=== PATIENT | female | born 1985 | race Caucasian/White ===

== ENCOUNTER 2019-08-01 09:05 | Emergency (ER) | payer BC ==
[2019-08-01 09:50] VITALS: BP 131/95
--- NOTE | 2019-08-01 09:57 | UC ---
Skin Complaint HPI - HPI Summary HPI Summary: 33-year-old female who had a pimple on her left chin which popped and she has had increasing redness and tenderness over the past few days which is now involving below her chin. She denies any fever or chills. She denies any difficulty breathing and no difficulty swallowing. She denies any toothache or tooth involvement. - History of Current Complaint Chief Complaint: UCSkin Time Seen by Provider: 08/01/19 09:50 Stated Complaint: SKIN CONCERN Hx Obtained From: Patient Hx Last Menstrual Period: early 12/2015 ?: No Onset/Duration: Gradual Onset Skin Exposure Onset/Duration: Days Ago Timing: Constant Onset Severity: Mild Current Severity: Moderate Pain Intensity: 4 Location: Other - Chin Character: Swelling, Pain, Redness Aggravating Factor(s): Touch Alleviating Factor(s): Nothing Associated Signs & Symptoms: Positive: Drainage - Patient has had some clear drainage from where the pimple was., Tenderness Related History: Other: - Area started off as a pimple on her chin. - Allergy/Home Medications Allergies/Adverse Reactions: Allergies Allergy/AdvReac Type Severity Reaction Status Date / Time seasonal Allergy Congestion Uncoded 08/01/19 09:45 Home Medications: Home Medications inFLIXimab* [Remicade*] 100 mg .SEE ORDER SEE INSTRUCTIONS 08/01/19 [History Confirmed 08/01/19] PMH/Surg Hx/FS Hx/Imm Hx - Additional Past Medical History Additional PMH: Patient has a history of rheumatoid arthritis Previously Healthy: Yes - Surgical History Surgical History: Yes Surgery Procedure, Year, and Place: FATTY TUMOR REMOVED FROM BACK OF NECK, t/a - Family History Known Family History: Positive: Non-Contributory - Social History Alcohol Use: Occasionally Substance Use Type: None Smoking Status (MU): Never Smoked Tobacco Review of Systems All Other Systems Reviewed And Are Negative: Yes Skin: Positive: Other - Patient had a pimple on her chin which she squeezed and now has redness and swelling to the chin area. Is Patient Immunocompromised?: Yes - patient has rheumatoid arthritis and is on methotrexate. Physical Exam Triage Information Reviewed: Yes Appearance: Well-Appearing, No Pain Distress, Well-Nourished Vital Signs: Initial Vital Signs Temp 98.4 F 08/01/19 09:44 Pulse 79 08/01/19 09:44 Resp 16 08/01/19 09:44 BP 131/95 08/01/19 09:44 Pulse Ox 100 08/01/19 09:44 Vital Signs Reviewed: Yes Eyes: Positive: Conjunctiva Clear ENT: Positive: Pharynx normal, TMs normal Neck: Positive: Supple, Nontender, No Lymphadenopathy Respiratory: Positive: Lungs clear, Normal breath sounds, No respiratory distress, No accessory muscle use Cardiovascular: Positive: RRR, No Murmur, Pulses Normal, Brisk Capillary Refill Musculoskeletal Exam: Normal Neurological Exam: Normal Psychological Exam: Normal Skin: Positive: Other - Patient's chin is warm to touch, red, tender, nothing expressed from the pimple area. She has some mild redness just below that in the submental area which is nontender on palpation. No other facial involvement. Course/Dx - Course Course Of Treatment: Patient is comfortable here. She can do warm moist compresses to the area. She prefers follow-up in [place] where her primary care provider is located. She is to definitely call them today to have her rechecked on Monday. If any symptoms worsen such as fever, chills, increased facial swelling, throat closing or difficulty breathing she is call 911 and go to the emergency room. Because this is on her face and there is a possibility of his abscess formation I did advise her the importance of following up with her primary care provider and possibly an ear nose and throat physician/plastic surgeon. - Diagnoses Provider Diagnosis: Cellulitis of chin Discharge ED - Sign-Out/Discharge Documenting (check all that apply): Patient Departure All imaging exams completed and their final reports reviewed: No Studies - Discharge Plan Condition: Fair Disposition: HOME Prescriptions: DOXYcycline CAP(*) [DOXYcycline 100MG CAP(*)] 100 mg PO BID 10 Days #20 cap Patient Education Materials: Cellulitis (DC) Referrals: Ander ACKERMAN,Shena Aragon [Primary Care Provider] - Additional Instructions: Warm, moist compresses to area 4-6 times a day for 20 minutes each time. NO dairy products, multivitamins, or antacids 2 hours before you take the doxycycline and 2 hours after you take the Doxycycine, however be sure and take it with food. Definite recheck with your primary care provider on Monday for a recheck. If symtpoms worsen such as fever, chills, throat closing, facial swelling, go to the ER as we discussed. - Billing Disposition and Condition Condition: FAIR Disposition: Home
== END 2019-08-01 10:17 | disposition home or self-care (01) ==
LOC: UCCORT 09:05
DX: L03.211 Cellulitis of face (principal); M06.9 Rheumatoid arthritis, unspecified
CPT/HCPCS: 99212; G0463

== ENCOUNTER 2019-09-05 07:39 | Emergency (ER) | payer BC ==
[2019-09-05 07:48] VITALS: BP 151/88
--- NOTE | 2019-09-05 08:05 | ED ---
Throat Pain/Nasal Congestion - HPI Summary HPI Summary: 33 yr female with right eyelid edema lower lid and some drainage, and irritation. Onset over the past two days. She has had some cold symptoms and been rubbing her eyes. No change in vision. NO contact lens use. No other complaints. - History of Current Complaint Chief Complaint: UCEye Time Seen by Provider: 09/05/19 07:48 - Allergies/Home Medications Allergies/Adverse Reactions: Allergies Allergy/AdvReac Type Severity Reaction Status Date / Time seasonal Allergy Congestion Uncoded 09/03/19 09:37 Home Medications: Home Medications Chlorphenir/Phenyleph/Aspirin [[place] Plus Cold Tab Eff] 1 tab PO BID [History Confirmed 09/05/19] PMH/Surg Hx/FS Hx/Imm Hx Respiratory History: Reports: Hx Asthma - routine and prn inhaler Sensory History: Reports: Hx Contacts or Glasses - GLASSES Denies: Hx Hearing Aid Opthamlomology History: Reports: Hx Contacts or Glasses - GLASSES - Surgical History Surgery Procedure, Year, and Place: FATTY TUMOR REMOVED FROM BACK OF NECK, t/a . T&A 2014 Hx Anesthesia Reactions: No Infectious Disease History: No Infectious Disease History: Denies: Traveled Outside the [place] in Last 30 Days - Family History Known Family History: Positive: None - Social History Occupation: Employed Full-time Alcohol Use: Occasionally Substance Use Type: Reports: None Smoking Status (MU): Never Smoked Tobacco Review of Systems Constitutional: Negative Positive: Drainage, Erythema Positive: Nasal Discharge All Other Systems Reviewed And Are Negative: Yes Physical Exam Triage Information Reviewed: Yes Vital Signs On Initial Exam: Initial Vitals Temp Pulse Resp BP Pulse Ox 97.8 F 92 16 151/88 98 09/05/19 07:45 09/05/19 07:45 09/05/19 07:45 09/05/19 07:45 09/05/19 07:45 Vital Signs Reviewed: Yes Appearance: Positive: Obese Skin: Positive: Warm, Skin Color Reflects Adequate Perfusion Head/Face: Positive: Normal Head/Face Inspection Eyes: Positive: EOMI, AMARILIS, Conjunctiva Inflammed, Other: - right lower eyelid with mild edema and redness, no stye formation. Left conjunctiva slight injected, right conjunctiva injected. ENT: Positive: Normal ENT inspection, Pharynx normal. Negative: Pharyngeal erythema Neck: Positive: Nontender Respiratory/Lung Sounds: Positive: Clear to Auscultation, Breath Sounds Present Cardiovascular: Positive: RRR. Negative: Murmur Abdomen Description: Negative: Distended Musculoskeletal: Positive: Strength/ROM Intact Neurological: Positive: Sensory/Motor Intact, Alert, Oriented to Person Place, Time, CN Intact II-III Psychiatric: Positive: Normal Diagnostics - Vital Signs Vital Signs Temp Pulse Resp BP Pulse Ox 09/05/19 07:45 97.8 F 92 16 151/88 98 - Laboratory Lab Statement: Any lab studies that have been ordered have been reviewed, and results considered in the medical decision making process. EENT Course/Dx - Course Course Of Treatment: 33yr old with conjunctivitis and lower eyelid cellulitis on the right. Scripts sent - Diagnoses Provider Diagnoses: Conjunctivitis, Cellulitis Discharge ED - Sign-Out/Discharge Documenting (check all that apply): Patient Departure All imaging exams completed and their final reports reviewed: No Studies - Discharge Plan Condition: Good Disposition: HOME Prescriptions: Cephalexin CAP* [Keflex CAP*] 500 mg PO QID #40 cap Ciprofloxacin 0.3% OPTH.[place]* [Cipro 0.3% Opth*] 2 drop BOTH EYES Q4H #1 btl Patient Education Materials: Conjunctivitis (ED), Cellulitis (ED), Hypertension (ED) Referrals: Shena Beckman [Primary Care Provider] - 2 Days Conchita Amos MD [Medical Doctor] - 2 Days - Billing Disposition and Condition Condition: GOOD Disposition: Home
== END 2019-09-05 08:10 | disposition home or self-care (01) ==
LOC: UCCORT 07:39
DX: H10.31 Unspecified acute conjunctivitis, right eye (principal); H00.032 Abscess of right lower eyelid; J45.909 Unspecified asthma, uncomplicated
CPT/HCPCS: 99212; G0463

== ENCOUNTER 2019-10-12 07:50 | Emergency (ER) | payer BC ==
[2019-10-12 08:32] VITALS: BP 158/60
--- NOTE | 2019-10-12 08:43 | UC ---
Eye Complaint HPI - HPI Summary HPI Summary: 33-year-old woman comes in with a chief complaint of a swollen red left upper eyelid. Started yesterday. She did try compresses but it did not help. No fevers or chills feels well otherwise. Is the third episode facial infection in 3 months. Patient has rheumatoid arthritis. Denies being on any immunosuppressive. No eye pain or change in vision. - History of Current Complaint Chief Complaint: UCEye Stated Complaint: LEFT EYE Time Seen by Provider: 10/12/19 08:34 Hx Last Menstrual Period: "a month ago" Pain Intensity: 0 - Allergies/Home Medications Allergies/Adverse Reactions: Allergies Allergy/AdvReac Type Severity Reaction Status Date / Time seasonal Allergy Congestion Uncoded 10/12/19 08:24 PMH/Surg Hx/FS Hx/Imm Hx Previously Healthy: Yes - RHEUMATOID ARTHRITIS - Surgical History Surgical History: Yes Surgery Procedure, Year, and Place: FATTY TUMOR REMOVED FROM BACK OF NECK, t/a . T&A 2014 - Family History Known Family History: Positive: None - Social History Alcohol Use: Occasionally Substance Use Type: None Smoking Status (MU): Never Smoked Tobacco Review of Systems All Other Systems Reviewed And Are Negative: Yes Constitutional: Positive: Negative Skin: Positive: Other - SEE HPI Eyes: Positive: Other - SEE HPI ENT: Positive: Negative Respiratory: Positive: Negative Cardiovascular: Positive: Negative Gastrointestinal: Positive: Negative Motor: Positive: Negative Neurovascular: Positive: Negative Musculoskeletal: Positive: Negative Neurological: Positive: Negative Psychological: Positive: Negative Is Patient Immunocompromised?: No Physical Exam Triage Information Reviewed: Yes Appearance: Well-Appearing, No Pain Distress, Well-Nourished Vital Signs: Initial Vital Signs Temp 98.3 F 10/12/19 08:19 Pulse 80 10/12/19 08:19 Resp 16 10/12/19 08:19 BP 158/60 10/12/19 08:19 Pulse Ox 100 10/12/19 08:19 Vital Signs Reviewed: Yes Eyes: Positive: Conjunctiva Clear, Other: - PERRLA EOMI. Upper eyelid is swollen worse medially. Is also erythematous. ENT: Negative: Nasal congestion, Nasal drainage, Muffled voice, Hoarse voice Neck: Positive: Supple Respiratory: Positive: Lungs clear, Normal breath sounds, No respiratory distress Cardiovascular: Positive: RRR Musculoskeletal: Positive: Strength Intact, ROM Intact Neurological: Positive: Alert Psychological: Positive: Age Appropriate Behavior Skin Exam: Normal Eye Complaint Course/Dx - Course Course Of Treatment: We discussed continuing warm compresses. Patient reports that she was treated with doxycycline in the past and that has helped. Patient will be following up with primary care doctor for these recurring symptoms. Patient's to get reevaluated sooner if worse or any questions or concerns. - Differential Dx/Diagnosis Provider Diagnosis: Hordeolum of left upper eyelid, Periorbital cellulitis of left eye Discharge ED - Sign-Out/Discharge Documenting (check all that apply): Patient Departure All imaging exams completed and their final reports reviewed: No Studies - Discharge Plan Condition: Stable Disposition: HOME Prescriptions: DOXYcycline CAP(*) [DOXYcycline 100MG CAP(*)] 100 mg PO BID #20 cap Tobramycin 0.3% OPHTH.[place]* 1 drop BOTH EYES Q4H #1 btl Patient Education Materials: Cellulitis (ED), Stye (ED) Referrals: Ander ACKERMAN,Shena Aragon [Primary Care Provider] - Additional Instructions: FOLLOW UP WITH YOUR DOCTOR OR [facility] BL[facility]ER IF NOT COMPLETELY IMPROVED. GET REEVALUATED SOONER IF NOT IMPROVING OR WORSE OR ANY QUESTIONS OR CONCERNS. - Billing Disposition and Condition Condition: STABLE Disposition: Home
== END 2019-10-12 08:50 | disposition home or self-care (01) ==
LOC: UCCORT 07:50
DX: H00.014 Hordeolum externum left upper eyelid (principal); L03.213 Periorbital cellulitis; M06.9 Rheumatoid arthritis, unspecified; Z91.09 Other allergy status, other than to drugs and biological substances
CPT/HCPCS: 99212; G0463